=== PATIENT | male | born 1960 | race American Indian/Alaskan Native ===

== ENCOUNTER 2017-08-30 15:32 | Emergency (ER) | payer SELFPAY ==
[2017-08-30 16:14] VITALS: BP 103/70
[2017-08-30 17:09] LABS: Basophils # (Auto) 0.1 K/mm3 (0.0-0.1); Basophils % (Auto) 1.8 % (0.0-1.8); Eosinophils # (Auto) 0.1 K/mm3 (0.0-0.4); Eosinophils % (Auto) 2.5 % (0.0-4.3); Hematocrit 42.3 % (35.5-45.6); Hemoglobin 13.7 gm/dl (11.8-15.2); Lymphocytes # (Auto) 1.4 K/mm3 (1.2-5.4); Lymphocytes % (Auto) 29.5 % (13.4-35.0); Mean Corpuscular HGB Conc 32 % (32-34); Mean Corpuscular Hemoglobin 27 pg (28-32); Mean Corpuscular Volume 82 fl (84-94); Monocytes # (Auto) 0.4 K/mm3 (0.0-0.8); Monocytes % (Auto) 9.3 % (0.0-7.3); Platelet Count 184 K/mm3 (140-440); Red Blood Count 5.14 M/mm3 (3.65-5.03); Red Cell Distribution Width 14.8 % (13.2-15.2)
[2017-08-30 17:26] LABS: Alanine Aminotransferase 14 units/L (7-56); Albumin 3.8 g/dL (3.9-5); BUN/Creatinine Ratio 12; Blood Urea Nitrogen 12 mg/dL (9-20); Calcium 8.9 mg/dL (8.4-10.2); Hemolysis Index 21
[2017-08-30 19:52] LABS: Bacteria,Urine 1+ /HPF (Negative); Bilirubin,Urine NEG (Negative); Blood,Urine MOD (Negative); Calcium Oxalate Crystals,Urine 1+; Color,Urine Amber (Yellow); Mucus,Urine FEW /HPF; Nitrite,Urine POS (Negative)
== END 2017-08-30 22:14 | disposition left against medical advice (07) ==
LOC: ED 15:32
DX: R39.89 Other symptoms and signs involving the genitourinary system (principal); Z53.21 Procedure and treatment not carried out due to patient leaving prior to being seen by health care provider
CPT/HCPCS: 36415; 80053; 81001; 85025

== ENCOUNTER → 2017-12-14 | Emergency (ER) | payer OTHER ==
[~2017-12-14] MED LIST: ULTRAM PO ONE
--- NOTE | 2017-12-14 12:13 | Emergency Department Report ---
Blank Doc - Documentation Documentation: This is a 57-year-old Guinean male who walks with a cane who is presenting status post fall. Patient states he did hit his head and his Headache Neck Pain As Well As Lower Back Pain and Left Hip Pain. X-Rays and CTs Will Be Ordered.
--- NOTE | 2017-12-14 12:20 | Emergency Department Report ---
ED Fall HPI - General Chief Complaint: Fall Stated Complaint: FALL Time Seen by Provider: 12/14/17 12:10 Source: patient Mode of arrival: Ambulatory - History of Present Illness Initial Comments: This is a 57-year-old [place] male who walks with a cane who is presenting status post fall. Patient states he did hit his head and his Headache Neck Pain As Well As Lower Back Pain and Left Hip Pain. Patient says that this fall was accidental. Hip and also lower back is 8 of 10 and feels achy. Patient has a history of chronic pain and says that he goes to the pain clinic and he usually takes Percocet which she has at home. He said he took Percocet this morning before he fell. He also has a history of high blood pressure and is taking amlodipine and lisinopril which she said he took today. Pain is worse with movement better with rest. Positive smoker. 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 denies: headache, numbness, weakness, chest paint, shortness of breath, abdominal pain, hematuria, unable to walk, lightheaded, vertigo, confusion - Related Data Home Medications Medication Instructions Recorded Confirmed Last Taken Lisinopril 20 mg PO DAILY MDD HTN 12/14/17 12/14/17 12/14/17 amLODIPine [Norvasc] 10 mg PO DAILY 12/14/17 12/14/17 12/14/17 oxyCODONE /ACETAMINOPHEN [Percocet 1 tab PO Q6HR PRN 12/14/17 12/14/17 12/14/17 5/325] Allergies Allergy/AdvReac Type Severity Reaction Status Date / Time morphine Allergy Swelling Verified 12/14/17 10:28 ED Review of Systems ROS: Stated complaint: FALL Other details as noted in HPI Comment: All other systems reviewed and negative Constitutional: no symptoms reported Eyes: denies: eye pain, eye discharge, vision change Respiratory: denies: cough, shortness of breath, wheezing Cardiovascular: denies: chest pain, palpitations Endocrine: no symptoms reported Gastrointestinal: denies: abdominal pain, nausea, vomiting, diarrhea, constipation, hematemesis, melena, hematochezia Genitourinary: denies: urgency, dysuria, frequency, hematuria Musculoskeletal: back pain, arthralgia, myalgia. denies: joint swelling Skin: denies: rash, lesions Neurological: paresthesias, abnormal gait (chronic in uses a cane). denies: headache, vertigo ED Past Medical Hx - Past Medical History Previous Medical History?: Yes Hx Hypertension: Yes Hx of Cancer: Yes (bladder) Hx Arthritis: Yes (osteoarthritis) Additional medical history: High cholesterol. Chronic back pain. 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, Back surgery, Eye surgery for detached retina in right eye, left eye with glaucoma - Family History Family history: cancer, hypertension - Social History Smoking Status: Current Some Day Smoker Substance Use Type: None Other Social History: Lives alone - Medications Home Medications: Home Medications Medication Instructions Recorded Confirmed Last Taken Type Lisinopril 20 mg PO DAILY MDD HTN 12/14/17 12/14/17 12/14/17 History amLODIPine [Norvasc] 10 mg PO DAILY 12/14/17 12/14/17 12/14/17 History oxyCODONE /ACETAMINOPHEN [Percocet 1 tab PO Q6HR PRN 12/14/17 12/14/17 12/14/17 History 5/325] ED Physical Exam - General Limitations: No Limitations General appearance: alert, in no apparent distress - Head Head exam: Present: atraumatic, normocephalic, normal inspection - Eye Eye exam: Present: normal appearance, PERRL, EOMI. Absent: nystagmus, periorbital swelling, periorbital tenderness Pupils: Present: normal accommodation - ENT ENT exam: Present: normal exam, normal orophraynx, mucous membranes moist - Neck Neck exam: Present: normal inspection, full ROM, other (positive C-spine tenderness per patient). Absent: tenderness (no muscular tenderness), lymphadenopathy - Expanded Neck Exam Expanded Neck exam: Present: tenderness. Absent: midline deformity, anterior neck swelling, carotid bruit, tracheal deviation - Respiratory Respiratory exam: Present: normal lung sounds bilaterally. Absent: respiratory distress, chest wall tenderness, accessory muscle use - Cardiovascular Cardiovascular Exam: Present: regular rate, normal rhythm, normal heart sounds. Absent: systolic murmur, diastolic murmur - GI/Abdominal GI/Abdominal exam: Present: soft, normal bowel sounds. Absent: distended, tenderness, mass, bruit, pulsatile mass, hernia - Extremities Exam Extremities exam: Present: normal inspection, full ROM, normal capillary refill , other (no clubbing, cyanosis or edema. No joint effusion noted. Patient has chronic mobility problems and ambulate with a cane. No rash, lesion, contusion or laceration. Pelvis is well aligned without any shortening of lower extremity. Nontender to palpation to hip joint. Patient without any bony abnormality or deformity. +2 pulses all extremities and no neurovascular compromise.). Absent: tenderness, pedal edema, joint swelling, calf tenderness - Back Exam Back exam: Present: normal inspection, full ROM, tenderness, vertebral tenderness (lumbar spine), other (ambulates with cane without any difficulties and this is chronic.). Absent: CVA tenderness (R), CVA tenderness (L), muscle spasm, paraspinal tenderness, rash noted - Expanded Back Exam Expanded Back exam: Absent: saddle anesthesia Back exam: Negative Straight Leg Raising: Left, Right - Neurological Exam Neurological exam: Present: alert, oriented X3, abnormal gait (normal gait which is chronic and ambulate with a cane), reflexes normal. Absent: motor sensory deficit - Expanded Neurological Exam Expanded Neurological exam: Absent: innattentive, memory loss-remote event, memory loss- recent event, ataxia, receptive aphasia, expressive aphasia, total aphasia, tremor, protecting the airway Patient oriented to: Present: person, place, time Speech: Present: fluid speech Cranial nerves: EOM's Intact: Normal, Gag Reflex: Normal, Tongue Deviation: Normal, Nystagmus: Normal, Facial Sensation: Normal Cerebellar function: Romberg: Normal Upper motor neuron: Pronator Drift: Normal, Sensory Extinction: Normal Sensory exam: Upper Extremity Light Touch: Normal, Upper Extremity Pin Prick: Normal, Upper Extremity Temperature: Normal, UE 2 Point Discrimination: Normal, Lower Extremity Light Touch: Normal, Lower Extremity Pin Prick: Normal, Lower Extremity Temperature: Normal, LE 2 Point Discrimination: Normal Motor strength exam: RUE: 5, LUE: 5, RLE: 5, LLE: 5 DTR: bicep (R): 2+, bicep (L): 2+, tricep (R): 2+, tricep (L): 2+, knee (R): 2+ , knee (L): 2+, ankle (R): 2+, ankle (L): 2+ Best Eye Response (Nimo): (4) open spontaneously Best Motor Response (Hollis): (6) obeys commands Best Verbal Response (Hollis): (5) oriented Hollis Total: 15 - Psychiatric Psychiatric exam: Present: normal affect, normal mood - Skin Skin exam: Present: warm, dry, intact, normal color. Absent: rash ED Course Vital Signs 12/14/17 12/14/17 10:28 14:30 Temperature 97.8 F Pulse Rate 69 64 Respiratory 18 18 Rate Blood Pressure 137/104 Blood Pressure 141/98 [Left] O2 Sat by Pulse 95 99 Oximetry - Reevaluation(s) Reevaluation #1: 12/14/17 13:56 Patient received tramadol 50 mg by mouth and was relief of pain. C-collar in place to patient with initial examination. Patient was screened by Dr. Kelly Scales. Neck pain has resolved. X-ray of pelvis is normal and x-ray of lumbar sacral spine degenerative disease but no fracture or subluxation Reevaluation #2: 12/14/17 15:34 Pt still awaiting then CT scan of the head as first CT scan was done but did not capture full image of head and brain therefore patient is currently in CT scan getting seconds scan. I spoke her radiologist and he said that he asked the mechanic sound technician to reduce scan. He said he could only see half the brain and a half of the brain that he can see is okay. Blood Pressure is stable Reevaluation #3: 12/14/17 17:15 Patient is stable, c-collar removed. Patient denies any neck pain, headache, pain in his pelvic or lower back at present. ED Medical Decision Making - EKG Data Interpretation: subendocardial ischemia - Radiology Data Radiology results: report reviewed CT scan of the C-spine revealed spondylosis but no acute findings. X-ray of lumbar spine reveal no acute fracture or subluxation but patient with degenerative changes. X-ray of pelvis reveal no acute findings CT scan of the head and brain without contrast shows no acute intracranial extracranial findings. - Medical Decision Making ED Course: Patient here reports that he fell today and he is having pain in the back of his neck pointing to his C-spine. Physical exam she's for tenderness to palpate his C-spine. Patient was placed in c-collar up on evaluation by Dr. Kelly Scales in emergency room. CT scan of the brain and C-spine revealed no acute abnormalities. Patient said he fell slipped and he did not hit his head and denied having any headache. He is neurologically intact. He is also complaining of lumbar spine pain which she has chronic back pain. He said pain was radiating down his left leg. He is tender to palpate to his lumbar spine and x-ray shows no acute finding but he has degenerative disc disease. Patient also complaining of pelvis pain .x-ray of pelvis was the reveal normal exam. She has chronic pain and is been followed by pain clinic and he reports that he takes Percocet at home which she still has Percocet. Patient is better he was monitored and stable. The pressure is better. Patient discharged home to follow up with his primary care physician and if needed this pain physician. I discussed with him that because of his age he needs to be careful with taking narcotics that if he has mild to moderate pain he can take Tylenol before taking narcotics. He voiced understanding and discharged home. Patient given results of his CT scan. Patient was given tramadol 50 mg. Emergency room for neck pain, back pain and pain in his pelvis area which relieved his pain. Critical care attestation.: If time is entered above; I have spent that time in minutes in the direct care of this critically ill patient, excluding procedure time. ED Disposition Clinical Impression: Arthralgia of multiple sites, Lumbar radiculopathy, chronic, Acute exacerbation of chronic low back pain, Arthralgia, neck Accidental fall Qualifiers: Encounter type: initial encounter Qualified Code(s): W19.XXXA - Unspecified fall, initial encounter Degenerative disc disease Qualifiers: Spinal region: lumbosacral Qualified Code(s): M51.37 - Other intervertebral disc degeneration, lumbosacral region Disposition: DC-01 TO HOME OR SELFCARE Is pt being admited?: No Does the pt Need Aspirin: No Condition: Stable Instructions: Fall Prevention for Older Adults (ED), Lumbar Radiculopathy (ED) , Musculoskeletal Pain (ED), Arthralgia (ED), Back Pain (ED), Fall Prevention ( ED) Additional Instructions: Please follow-up with your primary care physician and he pain doctor for management of pain. Please read Discharge information on fall prevention. Referrals: PRIMARY CARE, [Primary Care Provider] - 12/15/17 Your, pain clinic [Other] - 12/15/17
--- NOTE | 2017-12-14 13:48 | XRay Report ---
AP PELVIS: HISTORY: pain. AP view of the pelvis shows normal pelvic contour and soft tissues. The hips are symmetric and within normal limits as are the sacroiliac joints. IMPRESSION: Normal pelvis.
--- NOTE | 2017-12-14 13:49 | XRay Report ---
LUMBOSACRAL SPINE, 3 VIEWS: History: Back pain Findings: The vertebral bodies, disk spaces and posterior elements are intact. No compression deformity or malalignment. Moderate degenerative disc narrowing of L5-S1. The SI joints are symmetric and unremarkable. Impression: Degenerative disc disease at L5-S1. No evidence for acute injury to the lumbar spine.
--- NOTE | 2017-12-14 14:15 | Cat Scan Report ---
CT SCAN OF THE CERVICAL SPINE: HISTORY: Fall, injury. TECHNIQUE: Contiguous 1.25 mm axial images of the cervical spine were obtained. Sagittal and coronal reformatted images. FINDINGS: There is normal alignment of the cervical spine. The body, pedicles and posterior ligaments appear normal. No evidence of fracture or subluxation is seen. Moderate degenerative disc disease is noted at C3-4, C4-5, C5-6 and C6-7. The spinal canal appears normal. The prevertebral soft tissues appear normal. IMPRESSION: Cervical spondylosis. No acute process is noted.
[2017-12-14 14:31] VITALS: BP 141/98
--- NOTE | 2017-12-14 16:02 | Cat Scan Report ---
FINAL REPORT EXAM: CT HEAD/BRAIN WO CON HISTORY: fall injuy TECHNIQUE: CT examination of the head without IV contrast PRIORS: None. FINDINGS: No acute air-fluid level visualized in the included air-filled sinuses. Bone windows demonstrate no acute fracture. There is ventricular and sulcal prominence compatible with global cerebrocortical atrophy. The brain contains no mass, mass effect, hemorrhage, or acute infarct. There is no extra-axial intracranial bleed, brain bleed, or midline shift. IMPRESSION: No acute CVA, intracranial bleed, or brain mass
== END | disposition home or self-care (01) ==
LOC: ED 10:19
DX: M54.16 Radiculopathy, lumbar region (principal); M51.36 Other intervertebral disc degeneration, lumbar region; M54.2 Cervicalgia; I10 Essential (primary) hypertension; M19.90 Unspecified osteoarthritis, unspecified site; E78.00 Pure hypercholesterolemia, unspecified; F17.200 Nicotine dependence, unspecified, uncomplicated; Z88.6 Allergy status to analgesic agent
CPT/HCPCS: 70450; 72100; 72125; 72170; 99284

== ENCOUNTER 2017-12-19 22:07 | Emergency (ER) | payer OTHER | END 2017-12-19 22:25 | disposition left against medical advice (07) | LOC: ED 22:07 | DX: T17.208A Unspecified foreign body in pharynx causing other injury, initial encounter (principal); Z53.21 Procedure and treatment not carried out due to patient leaving prior to being seen by health care provider; X58.XXXA Exposure to other specified factors, initial encounter; Y93.89 Activity, other specified; Y92.89 Other specified places as the place of occurrence of the external cause; Y99.8 Other external cause status ==

== ENCOUNTER 2020-07-29 09:27 | Emergency (ER) | payer OTHER ==
[2020-07-29 09:39] VITALS: BP 144/111
--- NOTE | 2020-07-29 12:00 | Emergency Department Report ---
ED Fall HPI - General Chief Complaint: Fall Stated Complaint: LEFT LEG PAIN Time Seen by Provider: 07/29/20 11:16 Source: patient Mode of arrival: Ambulatory - History of Present Illness Initial Comments: The patient was evaluated in the emergency department for symptoms described in the history of present illness. He/she was evaluated in the context of the global COVID-19 pandemic, which necessitated consideration that the patient might be at risk for infection with the virus that causes COVID-19. Institutional protocols and algorithms that pertain to the evaluation of p atients at risk for COVID-19 are in a state of rapid change based on information released by regulatory bodies including the CDC and federal and state organizations. These policies and algorithms were followed during the patient's care in the emergency department. Please note that these policies, procedures and recommendations changed on a rapid basis. 60-year-old -[place] male presents to the emergency room complaining of back and bilateral leg pain. Patient reports he has a history of chronic leg pain and back pain but had fallen yesterday as he tripped and his leg gave out. Patient states he fell backwards but did not hit his head and no loss of consciousness. Patient states that he usually ambulates with a cane but has not used it in several days. Patient reports that he is followed by pain clinic [facility]. He has had a history of bladder cancer, back surgery eye surgery, mobility impairment. Has a history of osteoarthritis hypertension and high cholesterol. Patient reports he is allergic to morphine and diet. He states he takes Percocet and gabapentin for his chronic pain. MD Complaint: fall Onset/Timin -: days(s) Fall From: standing When Fall Occurred: [address] Fall Occurred: home Loss of Consciousness: none Prolonged Down Time?: no Symptoms Prior to Fall: none Location: back Location - Extremities: Left: Leg, Right: Leg Severity scale (0 -10): 10 Quality: sharp Context: tripped/slipped Associated Symptoms: denies - Related Data Home Medications Medication Instructions Recorded Confirmed Last Taken amLODIPine [Norvasc] 10 mg PO DAILY 12/14/17 12/14/17 12/14/17 lisinopriL [Lisinopril] 20 mg PO DAILY MDD HTN 12/14/17 12/14/17 12/14/17 oxyCODONE /ACETAMINOPHEN [Percocet 1 tab PO Q6HR PRN 12/14/17 12/14/17 12/14/17 5/325] Allergies Allergy/AdvReac Type Severity Reaction Status Date / Time morphine Allergy Swelling Verified 07/29/20 09:36 DYE CONTRAST Allergy Unknown Uncoded 07/29/20 09:36 ED Review of Systems ROS: Stated complaint: LEFT LEG PAIN Other details as noted in HPI Comment: All other systems reviewed and negative ED Past Medical Hx - Past Medical History Hx Hypertension: Yes Hx Arthritis: Yes (osteoarthritis) Additional medical history: High cholesterol. Chronic back pain. Mobility impairment - Surgical History Hx Cholecystectomy: Yes Additional Surgical History: 3 tumors removed from bladder, Back surgery, Eye surgery for detached retina in right eye, left eye with glaucoma - Social History Smoking Status: Never Smoker Substance Use Type: None - Medications Home Medications: Home Medications Medication Instructions Recorded Confirmed Last Taken Type amLODIPine [Norvasc] 10 mg PO DAILY 12/14/17 12/14/17 12/14/17 History lisinopriL [Lisinopril] 20 mg PO DAILY MDD HTN 12/14/17 12/14/17 12/14/17 History oxyCODONE /ACETAMINOPHEN [Percocet 1 tab PO Q6HR PRN 12/14/17 12/14/17 12/14/17 History 5/325] ED Physical Exam - General Limitations: No Limitations General appearance: alert, in no apparent distress - Head Head exam: Present: atraumatic, normocephalic - Eye Eye exam: Present: normal appearance - ENT ENT exam: Present: mucous membranes moist - Neck Neck exam: Present: normal inspection, full ROM - Respiratory Respiratory exam: Absent: accessory muscle use - Back Exam Back exam: Present: full ROM - Expanded Back Exam Expanded Back exam: Sciatic Notch Tenderness: Left, Right - Neurological Exam Neurological exam: Present: alert, oriented X3, abnormal gait (Shuffles left leg) - Psychiatric Psychiatric exam: Present: normal affect, normal mood - Skin Skin exam: Present: warm, dry, intact, normal color. Absent: rash ED Course Vital Signs 07/29/20 09:38 Temperature 97.9 F Pulse Rate 78 Respiratory 18 Rate Blood Pressure 144/111 O2 Sat by Pulse 95 Oximetry ED Medical Decision Making - Radiology Data Radiology results: report reviewed Patient: MARYANN ALMAGUER MR#: [id number] : 1960 Acct:[id number] Age/Sex: 60 / M ADM Date: 07/29/20 Loc: ED Attending Dr: Ordering Physician: BARRIE ROGERS Date of Service: 07/29/20 Procedure(s): XR spine lumbosacral 2-3V Accession Number(s): [id number] cc: BARRIE ROGERS Fluoro Time In Minutes: LUMBAR SPINE 3 VIEWS INDICATION / CLINICAL INFORMATION: Fall with lumbar sacral pain. COMPARISON: None available. FINDINGS: BONES/JOINT(S): No acute fracture or subluxation. Mild disc height loss at L5-S1 with reactive endplate sclerosis and osteophyte formation. No additional significant loss. SOFT TISSUES: No significant abnormality. ADDITIONAL FINDINGS: None. Signer Name: Tu Willard MD Signed: 07/29/2020 12:26 PM Workstation Name: [id number] Transcribed By: BECKA Dictated By: Tu Willard MD Electronically Authenticated By: Tu Willard MD Signed Date/Time: 07/29/201225 DD/ 24 TD/TT: - Medical Decision Making 60-year-old -[place] male presents to the emergency room complaining of back and bilateral leg pain. Patient reports he has a history of chronic leg pain and back pain but had fallen yesterday as he tripped and his leg gave out. Patient states he fell backwards but did not hit his head and no loss of consciousness. Patient states that he usually ambulates with a cane but has not used it in several days. Patient reports that he is followed by pain clinic [facility]. He has had a history of bladder cancer, back surgery eye surgery, mobility impairment. Has a history of osteoarthritis hypertension and high cholesterol. Patient reports he is allergic to morphine and diet. He states he takes Percocet and gabapentin for his chronic pain. X-ray of lumbar sacral has been ordered. Patient reports that he has a 130 appointment with his general practitioner. AMA with witness: the patient is alert and oriented 3. The patient exhibits decision-making capacity. The patient is free from distracting injury. The risks of leaving without a complete medical examination, and AGAINST MEDICAL ADVICE, were explained to the patient, and they included , disability, paralysis, permanent loss of quality of life. The patient verbalized understanding to these, and was able to articulate these risks in their own words, and this conversation is witnessed by * [employer] systems foreman Critical care attestation.: If time is entered above; I have spent that time in minutes in the direct care of this critically ill patient, excluding procedure time. ED Disposition Clinical Impression: Back pain at L4-L5 level Fall Qualifiers: Encounter type: initial encounter Qualified Code(s): W19.XXXA - Unspecified fall, initial encounter Disposition: - LEFT AGAINST MED ADVICE Is pt being admited?: No Does the pt Need Aspirin: No Condition: Stable Additional Instructions: AMA discharge: As we discussed, you have left the hospital/emergency room AGAINST MEDICAL ADVICE. By leaving, you risked , disability, paralysis, permanent loss of quality of life. The ER is open 24 hours a day, 7 days a week. It never closes. Please return to the emergency room right away if and when you change your mind. If you decide not to return to the emergency room, please follow-up with the listed physician referrals as soon as possible Referrals: PRIMARY MD ROSALIA [Primary Care Provider] - 3-5 Days [facility] [Outside] - 3-5 Days Forms: AMA Form
--- NOTE | 2020-07-29 12:30 | XRay Report ---
LUMBAR SPINE 3 VIEWS INDICATION / CLINICAL INFORMATION: Fall with lumbar sacral pain. COMPARISON: None available. FINDINGS: BONES/JOINT(S): No acute fracture or subluxation. Mild disc height loss at L5-S1 with reactive endpla te sclerosis and osteophyte formation. No additional significant loss. SOFT TISSUES: No significant abnormality. ADDITIONAL FINDINGS: None. Signer Name: Tu Willard MD Signed: 07/29/2020 12:26 PM Workstation Name: [id number]
== END 2020-07-29 12:28 | disposition left against medical advice (07) ==
LOC: ED 09:27
DX: M54.5 Low back pain (principal); I10 Essential (primary) hypertension; M19.90 Unspecified osteoarthritis, unspecified site; Z98.890 Other specified postprocedural states; Z90.49 Acquired absence of other specified parts of digestive tract; Z79.899 Other long term (current) drug therapy; Z88.6 Allergy status to analgesic agent; Z91.048 Other nonmedicinal substance allergy status; W01.0XXA Fall on same level from slipping, tripping and stumbling without subsequent striking against object, initial encounter; Y93.89 Activity, other specified; Y92.89 Other specified places as the place of occurrence of the external cause; Y99.8 Other external cause status
CPT/HCPCS: 72100; 99283

== ENCOUNTER 2020-10-12 11:11 | Emergency (ER) | payer OTHER ==
[2020-10-12 11:35] VITALS: BP 151/107
[2020-10-12] MEDS ORDERED: HYDROcodone/ACETAMINOPHEN 5-325 MG TAB PO ONE (11:41)
--- NOTE | 2020-10-12 12:23 | Cat Scan Report ---
CT BRAIN: 10/12/2020 INDICATION / CLINICAL INFORMATION: fall, on blood thinners, mild MICHAEL, neck/back pain. COMPARISON: 04/14/2020 FINDINGS: BRAIN/INTRACRANIAL STRUCTURES: Unenhanced CT images of the brain demonstrate no evidence of acute int racranial abnormality. Ventricles and sulci are normal in size and shape for a patient of this age. There is no evidence of acute ischemic injury, hemorrhage, or mass. There are no abnormal extra-axial fluid collections. There is been no significant change when compared to 04/14/2020. EXTRACRANIAL STRUCTURES: Unremarkable. IMPRESSION: No acute abnormality. All CT scans at this location are performed using dose reduction to ALARA by means of automated expos ure control. Signer Name: Neymar Patel MD Signed: 10/12/2020 12:19 PM Workstation Name: [id number]
--- NOTE | 2020-10-12 12:25 | Cat Scan Report ---
CT CERVICAL SPINE: 10/12/2020 INDICATION / CLINICAL INFORMATION: fall, on blood thinners, mild MICHAEL, neck/back pain. COMPARISON: None available. FINDINGS: CT images of the cervical spine were obtained. Images are evaluated in the axial, coronal, and sagitt al planes. There is no evidence of acute abnormality. Reversal of cervical lordosis is centered at the C4-5 level. Vertebral body alignment is otherwise un remarkable. Degenerative endplate irregularity is present throughout the cervical spine. There is no evidence of significant osseous central canal narrowing. There is some evidence of left-sided foraminal narrowing due to disc related osteophyte at C3-4 and C4-5. CRANIOCERVICAL JUNCTION: Unremarkable. PARASPINAL STRUCTURES: No significant abnormality. IMPRESSION: No acute abnormality. Degenerative changes. All CT scans at this location are performed using dose reduction to ALARA by means of automated expos ure control. Signer Name: Neymar Patel MD Signed: 10/12/2020 12:21 PM Workstation Name: [id number]
--- NOTE | 2020-10-12 12:25 | Emergency Department Report ---
ED Fall HPI - General Chief Complaint: Fall Stated Complaint: FALL/BODY PAIN Time Seen by Provider: 10/12/20 11:34 Source: patient Mode of arrival: Wheelchair - History of Present Illness Initial Comments: Patient is a 60-year-old male presents emergency room complaints of a fall that occurred just prior to arrival. Patient states he was outside walking down the steps. He states that there was a hole in the steps and his foot got caught which caused him to trip and fall. He states that he only missed one step. He is complaining of left-sided neck pain, left shoulder pain, left hip pain, lower back pain, mild headache. He denies any vision changes, acute numbness, acute weakness, bowel or bladder incontinence, any other injury, abrasions or lacerations. He has a past medical history of glaucoma, hypertension, A. fib. He is on Xarelto. Allergy to morphine. - Related Data Home Medications Medication Instructions Recorded Confirmed Last Taken amLODIPine [Norvasc] 10 mg PO DAILY 12/14/17 12/14/17 12/14/17 lisinopriL [Lisinopril] 20 mg PO DAILY MDD HTN 12/14/17 12/14/17 12/14/17 oxyCODONE /ACETAMINOPHEN [Percocet 1 tab PO Q6HR PRN 12/14/17 12/14/17 12/14/17 5/325] Previous Rx's Medication Instructions Recorded Last Taken Type Acetaminophen [Tylenol] 650 mg PO Q8HR PRN #20 capsule 10/12/20 Unknown Rx methOCARBAMOL [Robaxin TAB] 500 mg PO BID PRN #14 tab 10/12/20 Unknown Rx Allergies Allergy/AdvReac Type Severity Reaction Status Date / Time morphine Allergy Swelling Verified 07/29/20 09:36 DYE CONTRAST Allergy Unknown Uncoded 07/29/20 09:36 ED Review of Systems ROS: Stated complaint: FALL/BODY PAIN Other details as noted in HPI Comment: All other systems reviewed and negative ED Past Medical Hx - Past Medical History Previous Medical History?: Yes Hx Hypertension: Yes Hx Arthritis: Yes (osteoarthritis) Additional medical history: High cholesterol. Chronic back pain. 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, Back surgery, Eye surgery for detached retina in right eye, left eye with glaucoma - Social History Smoking Status: Never Smoker Substance Use Type: None - Medications Home Medications: Home Medications Medication Instructions Recorded Confirmed Last Taken Type amLODIPine [Norvasc] 10 mg PO DAILY 12/14/17 12/14/17 12/14/17 History lisinopriL [Lisinopril] 20 mg PO DAILY MDD HTN 12/14/17 12/14/17 12/14/17 History oxyCODONE /ACETAMINOPHEN [Percocet 1 tab PO Q6HR PRN 12/14/17 12/14/17 12/14/17 History 5/325] Acetaminophen [Tylenol] 650 mg PO Q8HR PRN #20 capsule 10/12/20 Unknown Rx methOCARBAMOL [Robaxin TAB] 500 mg PO BID PRN #14 tab 10/12/20 Unknown Rx ED Physical Exam - General Limitations: No Limitations General appearance: alert, in no apparent distress - Head Head exam: Present: atraumatic, normocephalic - Eye Eye exam: Present: normal appearance, PERRL, EOMI. Absent: periorbital swelling, periorbital tenderness Pupils: Present: normal accommodation - ENT ENT exam: Present: mucous membranes moist - Neck Neck exam: Present: normal inspection, tenderness (left sided paraspinal C-spine ttp, mild midline C-spine paraspinal ttp, no step offs, no deformities), full ROM - Respiratory Respiratory exam: Present: normal lung sounds bilaterally. Absent: respiratory distress, wheezes, rales, rhonchi, stridor, chest wall tenderness, accessory muscle use, decreased breath sounds, prolonged expiratory - Cardiovascular Cardiovascular Exam: Present: regular rate, normal rhythm, normal heart sounds. Absent: systolic murmur, diastolic murmur, rubs, gallop - Extremities Exam Extremities exam: Present: other (ttp to the left posterior shoulder, no sulcus sign, clavicles are equal, no clavicular ttp, no deformity, left lateral hip ttp, no deformity, FROM of the BUE/BLE, neurovascularly intact) - Back Exam Back exam: Present: normal inspection, full ROM, paraspinal tenderness (left lumbar), vertebral tenderness (lumbar), other (no step offs, no deformities, no midline or paraspinal T-spine ttp) - Neurological Exam Neurological exam: Present: alert, oriented X3, CN II-XII intact, normal gait. Absent: motor sensory deficit - Psychiatric Psychiatric exam: Present: normal affect, normal mood - Skin Skin exam: Present: warm, dry, intact ED Course Vital Signs 10/12/20 10/12/20 10/12/20 11:32 12:36 13:21 Temperature 98.0 F Pulse Rate 83 Respiratory 22 18 18 Rate Blood Pressure 151/107 O2 Sat by Pulse 96 Oximetry ED Medical Decision Making - Radiology Data Radiology results: report reviewed Ordering Physician: BARRIE DAN Date of Service: 10/12/20 Procedure(s): CT lumbar spine wo con Accession Number(s): [id number] cc: BARRIE DAN CT LUMBAR SPINE: 10/12/2020 INDICATION / CLINICAL INFORMATION: fall, on blood thinners, mild MICHAEL, neck/back pain. COMPARISON: None available. FINDINGS: CT images of the lumbar spine were obtained. Images are evaluated in the axial, coronal, and sagittal planes. There is no evidence of acute abnormality. Degenerative changes are present at the L5-S1 disc level, with diffuse disc bulging present associated with L5 lower endplate irregularity and degenerative sclerotic changes. Disc profiles are otherwise well preserved. PARASPINAL STRUCTURES: Unremarkable. IMPRESSION: No acute abnormality. All CT scans at this location are performed using dose reduction to ALARA by means of automated exposure control. Signer Name: Neymar Patel MD Signed: 10/12/2020 12:22 PM Workstation Name: [id number] Transcribed By: RAIMUNDO Dictated By: Neymar Patel MD Electronically Authenticated By: Neymar Patel MD Signed Date/Time: 10/12/20 1222 DD/ 1221 TD/TT: Ordering Physician: BARRIE DAN Date of Service: 10/12/20 Procedure(s): CT head/brain wo con Accession Number(s): [id number] cc: BARRIE DAN CT BRAIN: 10/12/2020 INDICATION / CLINICAL INFORMATION: fall, on blood thinners, mild MICHAEL, neck/back pain. COMPARISON: 04/14/2020 FINDINGS: BRAIN/INTRACRANIAL STRUCTURES: Unenhanced CT images of the brain demonstrate no evidence of acute intracranial abnormality. Ventricles and sulci are normal in size and shape for a patient of this age. There is no evidence of acute ischemic injury, hemorrhage, or mass. There are no abnormal extra- axial fluid collections. There is been no significant change when compared to 04/14/2020. EXTRACRANIAL STRUCTURES: Unremarkable. IMPRESSION: No acute abnormality. All CT scans at this location are performed using dose reduction to ALARA by means of automated exposure control. Signer Name: Neymar Patel MD Signed: 10/12/2020 12:19 PM Workstation Name: [id number] Transcribed By: RAIMUNDO Dictated By: Neymar Patel MD Electronically Authenticated By: Neymar Patel MD Signed Date/Time: 10/12/209 DD/ 1217 TD/TT: Ordering Physician: BARRIE DAN Date of Service: 10/12/20 Procedure(s): CT cervical spine wo con Accession Number(s): [id number] cc: BARRIE DAN CT CERVICAL SPINE: 10/12/2020 INDICATION / CLINICAL INFORMATION: fall, on blood thinners, mild MICHAEL, neck/back pain. COMPARISON: None available. FINDINGS: CT images of the cervical spine were obtained. Images are evaluated in the axial, coronal, and sagittal planes. There is no evidence of acute abnormality. Reversal of cervical lordosis is centered at the C4-5 level. Vertebral body alignment is otherwise unremarkable. Degenerative endplate irregularity is present throughout the cervical spine. There is no evidence of significant osseous central canal narrowing. There is some evidence of left- sided foraminal narrowing due to disc related osteophyte at C3-4 and C4-5. CRANIOCERVICAL JUNCTION: Unremarkable. PARASPINAL STRUCTURES: No significant abnormality. IMPRESSION: No acute abnormality. Degenerative changes. All CT scans at this location are performed using dose reduction to ALARA by means of automated exposure control. Signer Name: Neymar Patel MD Signed: 10/12/2020 12:21 PM Workstation Name: [id number] Transcribed By: RAIMUNDO Dictated By: Neymar Patel MD Electronically Authenticated By: Neymar Patel MD Signed Date/Time: 10/12/20 1221 DD/ TD/TT: Print Cancel Ordering Physician: BARRIE DAN Date of Service: 10/12/20 Procedure(s): XR shoulder 2+V LT Accession Number(s): [id number] cc: BARRIE DAN Fluoro Time In Minutes: LEFT SHOULDER 3 VIEWS INDICATION: fall, left shoulder pain. COMPARISON: None. IMPRESSION: No acute osseous or soft tissue abnormality. No significant DJD. LEFT HIP 2 VIEWS INDICATION: Fall, left hip pain. COMPARISON: None. IMPRESSION: No acute osseous or soft tissue abnormality. Moderate to severe osteoarthritic changes are identified at the left hip. Signer Name: Manuel Fontenot Jr, MD Signed: 10/12/2020 12:44 PM Workstation Name: [id number] Transcribed By: TTR Dictated By: MANUEL FONTENOT JR, MD Electronically Authenticated By: MANUEL FONTENOT JR, MD Signed Date/Time: 10/12/20 1244 DD/ 124 TD/TT: Print Cancel - Medical Decision Making Patient is a 60-year-old male presents emergency room complaints of a fall that occurred just prior to arrival. Patient states he was outside walking down the steps. He states that there was a hole in the steps and his foot got caught which caused him to trip and fall. He states that he only missed one step. He is complaining of left-sided neck pain, left shoulder pain, left hip pain, lower back pain, mild headache. He denies any vision changes, acute numbness, acute weakness, bowel or bladder incontinence, any other injury, abrasions or lacerations. He has a past medical history of glaucoma, hypertension, A. fib. He is on Xarelto. Allergy to morphine. Initial vitals with elevated blood pressure, patient states that he did not yet take his morning medications, he states he does have them at home and will take them once he returns home, otherwise vitals are stable. on exam: left sided paraspinal C-spine ttp, mild midline C-spine paraspinal ttp, no step offs, no deformities, ttp to the left posterior shoulder, no sulcus sign, clavicles are equal, no clavicular ttp, no deformity, left lateral hip ttp, no deformity, FROM of the BUE/BLE, neurovascularly intact, left paraspinal lumbar and midline lumbar tenderness palpation, no step offs, no deformities, no midline or paraspinal T-spine ttp, no focal neuro deficits. CT lumbar spine: No acute abnormality. CT head: No acute abnormality. CT cervical spine: No acute abnormality. Degenerative changes. XR left shoulder: IMPRESSION: No acute osseous or soft tissue abnormality. No significant DJD. XR left hip: IMPRESSION: No acute osseous or soft tissue abnormality. Moderate to severe osteoarthritic changes are identified at the left hip. Discussed all results with patient and answered questions. Patient given medications while in the emergency department and symptoms improved and he is feeling much better ready to go home. He was able to ambulate without difficulty. Given prescription for tylenol and Robaxin. Advised patient Please take medication as prescribed as needed. Do not drive or operate machinery while taking muscle relaxer Robaxin. May use ice pack, heating pad, rest, Epsom salt bath. Follow-up with your primary care doctor for reexamination. Return to emergency room immediately for any new or worsening symptoms. Critical care attestation.: If time is entered above; I have spent that time in minutes in the direct care of this critically ill patient, excluding procedure time. ED Disposition Clinical Impression: Left hip pain Fall Qualifiers: Encounter type: initial encounter Qualified Code(s): W19.XXXA - Unspecified fall, initial encounter Minor head injury Qualifiers: Encounter type: initial encounter Qualified Code(s): S09.90XA - Unspecified injury of head, initial encounter Cervical strain Qualifiers: Encounter type: initial encounter Qualified Code(s): S16.1XXA - Strain of muscle, fascia and tendon at neck level, initial encounter Lumbar strain Qualifiers: Encounter type: initial encounter Qualified Code(s): S39.012A - Strain of muscle, fascia and tendon of lower back, initial encounter Left shoulder pain Qualifiers: Chronicity: acute Qualified Code(s): M25.512 - Pain in left shoulder Disposition: DC-01 TO HOME OR SELFCARE Is pt being admited?: No Does the pt Need Aspirin: No Condition: Stable Instructions: Musculoskeletal Pain Additional Instructions: Please take medication as prescribed as needed. Do not drive or operate machinery while taking muscle relaxer Robaxin. May use ice pack, heating pad, rest, Epsom salt bath. Follow-up with your primary care doctor for reexamination. Return to emergency room immediately for any new or worsening symptoms. Prescriptions: methOCARBAMOL [Robaxin TAB] 500 mg PO BID PRN #14 tab PRN Reason: pain Acetaminophen [Tylenol] 650 mg PO Q8HR PRN #20 capsule PRN Reason: pain Referrals: PRIMARY CARE, [Primary Care Provider] - 2-3 Days Time of Disposition: 13:11 Print Language: CHADIAN
--- NOTE | 2020-10-12 12:48 | XRay Report ---
LEFT SHOULDER 3 VIEWS INDICATION: fall, left shoulder pain. COMPARISON: None. IMPRESSION: No acute osseous or soft tissue abnormality. No significant DJD. LEFT HIP 2 VIEWS INDICATION: Fall, left hip pain. COMPARISON: None. IMPRESSION: No acute osseous or soft tissue abnormality. Moderate to severe osteoarthritic change s are identified at the left hip. Signer Name: Manuel Fontenot Jr, MD Signed: 10/12/2020 12:44 PM Workstation Name: [id number]
== END 2020-10-12 13:43 | disposition home or self-care (01) ==
LOC: ED 11:11
DX: S16.1XXA Strain of muscle, fascia and tendon at neck level, initial encounter (principal); S39.012A Strain of muscle, fascia and tendon of lower back, initial encounter; S09.90XA Unspecified injury of head, initial encounter; M25.512 Pain in left shoulder; M25.552 Pain in left hip; I10 Essential (primary) hypertension; M19.91 Primary osteoarthritis, unspecified site; Z90.49 Acquired absence of other specified parts of digestive tract; Z98.890 Other specified postprocedural states; Z79.899 Other long term (current) drug therapy; Z88.8 Allergy status to other drugs, medicaments and biological substances; W01.0XXA Fall on same level from slipping, tripping and stumbling without subsequent striking against object, initial encounter; Y93.89 Activity, other specified; Y92.89 Other specified places as the place of occurrence of the external cause; Y99.8 Other external cause status
CPT/HCPCS: 70450; 72125; 72131